=== PATIENT | female | born 1955 | race Asian ===

== ENCOUNTER 2022-12-09 20:24 | Emergency (ER) | payer MEDICARE ==
[~2022-12-09] VITALS: Ht 162.6 cm; Wt 65.9 kg
[2022-12-09] MEDS ORDERED: PERMETHRIN 5% 60 GM CREAM TP ONE (21:45)
[2022-12-09] MEDS ORDERED: PredniSONE 20 MG TABLET PO ONE (21:45)
[2022-12-09] MEDS ORDERED: DiphenhydrAMINE HCL 50 MG CAPSULE PO ONE (21:45)
[2022-12-09] MEDS ORDERED: FAMOTIDINE 20 MG TABLET PO ONE (21:45)
[2022-12-09] MEDS ORDERED: DIPH50 PO (21:58)
[2022-12-09 22:22] VITALS: BP 126/80
== END 2022-12-09 22:24 | disposition home or self-care (01) ==
LOC: EMS 20:27
DX: L25.9 Unspecified contact dermatitis, unspecified cause (principal); R21 Rash and other nonspecific skin eruption; Z90.13 Acquired absence of bilateral breasts and nipples
CPT/HCPCS: 99284; J7512